=== PATIENT | male | born 1940 | race Two or more races ===

== ENCOUNTER 2017-10-17 15:24 | Emergency (ER) | payer OTHER ==
[~2017-10-17] VITALS: Ht 170.2 cm; Wt 86.2 kg
[~2017-10-17 15:24] MED LIST: AMLO10TA2 PO; ASPI81TA10 PO; BUPR75TA4 PO; DIP25C PO; ENAL5TAB92 PO; FURO40TA4 PO; METH10T PO; METO25TA5 PO; POTA10TA51 PO; POTA8TAB2 PO; PROAIR IN; TEMA15CA PO; TIOTCAP IN; WARF3TAB22 PO
[2017-10-17 15:46] VITALS: BP 138/69
[2017-10-17 16:45] LABS: Albumin 3.4 g/dL (3.4-5.0); Anion Gap 9 (5-15); Aspartate Aminotransferase 19 U/L (15-37); BUN/Creatinine Ratio 13.1; Blood Urea Nitrogen 17 mg/dL (7-18); Calcium 8.5 mg/dL (8.5-10.1); Carbon Dioxide 25 mmol/L (21-32); Chloride 105 mmol/L (98-107); GFR African American 69 mL/min; GFR Non-African American 57 mL/min; Glucose 105 mg/dL (74-106); Magnesium 2.2 mg/dL (1.6-2.6); Potassium 3.6 mmol/L (3.5-5.1); Sodium 139 mmol/L (136-145)
[2017-10-17 16:50] LABS: Alkaline Phosphatase 101 U/L (45-117); Bilirubin, Total 0.5 mg/dL (0.2-1.0); Total Protein 8.7 g/dL (6.4-8.2)
[2017-10-17 16:52] LABS: B-Type Natriuretic Peptide 605.69 pg/mL (0-100)
[2017-10-17 16:55] LABS: Temperature: 23.1 C (20.0-25.0)
[2017-10-17 17:51] LABS: Basophils # (auto) 0 uL; Basophils % (auto) 0.8 % (0.0-2.0); Eosinophils # (auto) 0.2 uL; Eosinophils % (auto) 4.1 % (0.0-7.0); Hematocrit 35.2 % (41.0-53.0); Hemoglobin 11.5 g/dL (13.5-17.5); Lymphocytes # (auto) 0.9 uL; Mean Corpuscular Hemoglobin 31.5 pg (28.0-32.0); Mean Corpuscular Hgb Conc. 32.7 g/dL (32.0-36.0); Mean Corpuscular Volume 96.3 fL (80.0-100.0); Mean Platelet Volume 10.7 fL (6.9-10.8); Monocytes # (auto) 0.5 uL; Monocytes % (auto) 9.2 % (0.0-12.0); Neutrophils # (auto) 3.4 uL; Neutrophils % (auto) 67.9 % (37.0-80.0); Nucleated Red Blood Cells % 0.1 %; Platelet Count (auto) 138 10^3/uL (140-450); Red Cell Distribution Width 15.3 % (11.8-14.3); White Blood Cell 4.9 10^3/uL (4.4-10.8)
== END 2017-10-17 19:54 | disposition left against medical advice (07) ==
LOC: ER 15:24
DX: M79.89 Other specified soft tissue disorders (principal); R06.02 Shortness of breath; Z53.21 Procedure and treatment not carried out due to patient leaving prior to being seen by health care provider
CPT/HCPCS: 36415; 71010; 80053; 83735; 83880; 84484; 85025; 93005

== ENCOUNTER 2017-11-16 19:50 | Inpatient (IN) | payer OTHER ==
[~2017-11-16] VITALS: Ht 170.2 cm; Wt 83.9 kg
[2017-11-16] MEDS ORDERED: ONDANSETRON HCL 4 MG/2 ML VIAL IV ONE (21:15)
[2017-11-16] MEDS ORDERED: HYDROmorphone HCL 2 MG/ML VL IV ONE (21:15)
[2017-11-16 21:21] LABS: Basophils # (auto) 0.1 uL; Basophils % (auto) 0.6 % (0.0-2.0); Eosinophils # (auto) 0 uL; Eosinophils % (auto) 0.5 % (0.0-7.0); Hematocrit 33.9 % (41.0-53.0); Hemoglobin 11.1 g/dL (13.5-17.5); Lymphocytes # (auto) 0.4 uL; Lymphocytes % (auto) 4.6 % (10.0-50.0); Mean Corpuscular Hemoglobin 31.2 pg (28.0-32.0); Mean Corpuscular Hgb Conc. 32.7 g/dL (32.0-36.0); Mean Corpuscular Volume 95.3 fL (80.0-100.0); Monocytes # (auto) 0.6 uL; Monocytes % (auto) 7.1 % (0.0-12.0); Neutrophils # (auto) 7.8 uL; Neutrophils % (auto) 87.2 % (37.0-80.0); Platelet Count (auto) 138 10^3/uL (140-450); Red Blood Cells 3.55 10^6/uL (4.5-5.90); Red Cell Distribution Width 15.2 % (11.8-14.3)
[2017-11-16 21:45] LABS: Alanine Aminotransferase 21 U/L (16-61); Albumin 3.1 g/dL (3.4-5.0); Amylase 43 U/L (25-115); Anion Gap 8 (5-15); Aspartate Aminotransferase 25 U/L (15-37); BUN/Creatinine Ratio 10.7; Blood Urea Nitrogen 16 mg/dL (7-18); Carbon Dioxide 23 mmol/L (21-32); Chloride 108 mmol/L (98-107); GFR African American 59 mL/min; GFR Non-African American 48 mL/min; Glucose 135 mg/dL (74-106); Lipase 109 U/L (73-393); Potassium 3.7 mmol/L (3.5-5.1); Sodium 139 mmol/L (136-145)
[2017-11-16] MEDS ORDERED: SODIUM CHLORIDE 0.9% 1,000 ML IV ONE (21:45)
[2017-11-16 21:50] LABS: Alkaline Phosphatase 138 U/L (45-117); Bilirubin, Total 0.4 mg/dL (0.2-1.0); Lactic Acid w/Reflex 2.4 mmol/L (0.4-2.0); Total Protein 8.9 g/dL (6.4-8.2)
[2017-11-16 22:02] LABS: Urine Bacteria FEW /hpf (None Seen); Urine Blood Negative /uL (Negative); Urine Mucus FEW (None Seen); Urine Specific Gravity 1.013 (1.001-1.035); Urine WBC 1 /hpf (0 - 3)
[2017-11-17] MEDS ORDERED: FUROSEMIDE 20 MG/2 ML VIAL IV ONE (01:15)
[2017-11-17] MEDS ORDERED: ONDANSETRON HCL 4 MG/2 ML VIAL IV PRN (07:45)
[2017-11-17] MEDS ORDERED: ACETAMINOPHEN 500 MG TAB PO PRN (07:45)
[2017-11-17] MEDS ORDERED: HYDROcodone-ACET 5/325MG TAB PO PRN (07:45)
[2017-11-17 08:06] LABS: Basophils # (auto) 0 uL; Basophils % (auto) 0.3 % (0.0-2.0); Eosinophils # (auto) 0 uL; Eosinophils % (auto) 0.1 % (0.0-7.0); Hematocrit 32.8 % (41.0-53.0); Hemoglobin 10.7 g/dL (13.5-17.5); Lymphocytes # (auto) 0.6 uL; Mean Corpuscular Hemoglobin 31.3 pg (28.0-32.0); Mean Corpuscular Hgb Conc. 32.7 g/dL (32.0-36.0); Mean Corpuscular Volume 95.6 fL (80.0-100.0); Monocytes # (auto) 0.5 uL; Monocytes % (auto) 5.8 % (0.0-12.0); Neutrophils # (auto) 7.8 uL; Neutrophils % (auto) 86.8 % (37.0-80.0); Platelet Count (auto) 114 10^3/uL (140-450); Red Blood Cells 3.43 10^6/uL (4.5-5.90); Red Cell Distribution Width 15.5 % (11.8-14.3)
[2017-11-17 08:35] LABS: Albumin 2.9 g/dL (3.4-5.0); Calcium 8.1 mg/dL (8.5-10.1); Potassium 3.9 mmol/L (3.5-5.1)
[2017-11-17 08:37] LABS: BUN/Creatinine Ratio 11.8
[2017-11-17 08:39] LABS: Bilirubin, Total 0.7 mg/dL (0.2-1.0)
[2017-11-17] MEDS: cefTRIAXone 1GM/10ml IVPUSH 10 ML IV SCH (09:23)
[2017-11-17] MEDS: FUROSEMIDE 40 MG/4 ML VIAL IV SCH (09:23)
[2017-11-17] MEDS: ENALAPRIL MALEATE 10 MG TAB PO SCH (09:24)
[2017-11-17 11:02] LABS: INR 2.63 (0.9-1.15); Partial Thromboplastin Time 45.2 sec (22.64-33.71)
[2017-11-17 14:42] VITALS: BP 152/80
[2017-11-17 15:15] VITALS: BP 152/80
[2017-11-17 15:54] LABS: Cholesterol 99 mg/dL (< 200); HDL Cholesterol 45 mg/dL (40-59); LDL Cholesterol 55 mg/dL (< 100); Triglycerides 71 mg/dL (< 150)
[2017-11-17] MEDS ORDERED: WARFARIN SODIUM 2 MG TAB PO ONE (17:00)
[2017-11-17 20:00] VITALS: BP 132/70
[2017-11-17 22:19] VITALS: BP 132/70
[2017-11-18 06:00] VITALS: BP 133/81
[2017-11-18 07:12] LABS: Basophils # (auto) 0 uL; Basophils % (auto) 0.3 % (0.0-2.0); Eosinophils # (auto) 0.1 uL; Eosinophils % (auto) 1.7 % (0.0-7.0); Hematocrit 32.9 % (41.0-53.0); Hemoglobin 10.9 g/dL (13.5-17.5); Lymphocytes # (auto) 0.8 uL; Lymphocytes % (auto) 12.3 % (10.0-50.0); Mean Corpuscular Hemoglobin 31.5 pg (28.0-32.0); Mean Corpuscular Volume 95.5 fL (80.0-100.0); Monocytes # (auto) 0.5 uL; Monocytes % (auto) 7.4 % (0.0-12.0); Neutrophils # (auto) 4.9 uL; Neutrophils % (auto) 78.3 % (37.0-80.0); Platelet Count (auto) 112 10^3/uL (140-450); Red Blood Cells 3.45 10^6/uL (4.5-5.90); White Blood Cell 6.2 10^3/uL (4.4-10.8)
[2017-11-18 07:26] LABS: INR 2.14 (0.9-1.15); Partial Thromboplastin Time 44.1 sec (22.64-33.71); Prothrombin Time 23.5 sec (9.37-12.3)
[2017-11-18 09:00] VITALS: BP 118/60
[2017-11-18] MEDS: cefTRIAXone 1GM/10ml IVPUSH 10 ML IV SCH (10:02)
[2017-11-18] MEDS: FUROSEMIDE 40 MG/4 ML VIAL IV SCH (10:02)
[2017-11-18] MEDS: ENALAPRIL MALEATE 10 MG TAB PO SCH (10:03)
[2017-11-18] MEDS ORDERED: LEVO500T21 PO (12:41)
[2017-11-18 13:00] VITALS: BP 130/66
[2017-11-18 16:37] VITALS: BP 127/74
[2017-11-18] MEDS ORDERED: WARFARIN SODIUM 2 MG TAB PO ONE (17:00)
[2017-11-18 20:00] VITALS: BP 135/79
[2017-11-18 22:05] VITALS: BP 135/79
[2017-11-19] VITALS (7 sets, daily range): BP systolic 103–140; BP diastolic 55–92
[2017-11-19 07:30] LABS: Basophils # (auto) 0.1 uL; Basophils % (auto) 1.1 % (0.0-2.0); Eosinophils # (auto) 0.2 uL; Eosinophils % (auto) 3.4 % (0.0-7.0); Hematocrit 32.6 % (41.0-53.0); Hemoglobin 10.8 g/dL (13.5-17.5); Lymphocytes % (auto) 20.2 % (10.0-50.0); Mean Corpuscular Hemoglobin 30.8 pg (28.0-32.0); Mean Corpuscular Hgb Conc. 33.1 g/dL (32.0-36.0); Mean Corpuscular Volume 92.9 fL (80.0-100.0); Monocytes # (auto) 0.5 uL; Monocytes % (auto) 8.9 % (0.0-12.0); Neutrophils # (auto) 3.4 uL; Neutrophils % (auto) 66.4 % (37.0-80.0); Nucleated Red Blood Cells % 0.1 %; Platelet Count (auto) 102 10^3/uL (140-450); Red Blood Cells 3.51 10^6/uL (4.5-5.90); Red Cell Distribution Width 14.7 % (11.8-14.3); White Blood Cell 5.1 10^3/uL (4.4-10.8)
[2017-11-19 10:01] LABS: INR 1.53 (0.9-1.15); Partial Thromboplastin Time 28.8 sec (22.64-33.71); Prothrombin Time 16.7 sec (9.37-12.3)
[2017-11-19 10:09] LABS: BUN/Creatinine Ratio 14.2; Calcium 8.5 mg/dL (8.5-10.1)
[2017-11-19 10:12] LABS: Bilirubin, Total 0.6 mg/dL (0.2-1.0); Total Protein 8.4 g/dL (6.4-8.2)
[2017-11-19] MEDS: cefTRIAXone 1GM/10ml IVPUSH 10 ML IV SCH (10:29)
[2017-11-19] MEDS: FUROSEMIDE 40 MG/4 ML VIAL IV SCH (10:30)
[2017-11-19] MEDS: ENALAPRIL MALEATE 10 MG TAB PO SCH (10:31)
[2017-11-19 10:41] LABS: Hepatitis B Surface Antibody Negative
[2017-11-19] MEDS ORDERED: ADENOSINE 71 MG in GIVE UN-DILUTED 0 ML IV ONE (10:45)
[2017-11-19 10:52] LABS: Hepatitis B Surface Antigen Negative (Negative)
[2017-11-19] MEDS ORDERED: IPRATROPIUM BROM 0.5 MG/2.5ML INH SOL ONE (11:14)
[2017-11-19] MEDS ORDERED: ALBUTEROL SULF 2.5 MG/0.5ML(0.5%) NEB SOLN ONE (11:14)
[2017-11-19 11:20] LABS: Hepatitis A Total Antibody Positive
[2017-11-19 11:58] LABS: Hepatitis B Core Total AB Positive; Hepatitis C Antibody Positive (Negative)
[2017-11-20 05:00] VITALS: BP 124/87
[2017-11-20 06:47] LABS: INR 1.5 (0.9-1.15); Partial Thromboplastin Time 36.5 sec (22.64-33.71); Prothrombin Time 16.4 sec (9.37-12.3)
[2017-11-20 08:00] VITALS: BP 109/44
[2017-11-20] MEDS: FUROSEMIDE 40 MG/4 ML VIAL IV SCH (09:15)
[2017-11-20] MEDS: ENALAPRIL MALEATE 10 MG TAB PO SCH (09:15)
[2017-11-20] MEDS: cefTRIAXone 1GM/10ml IVPUSH 10 ML IV SCH (09:16)
[2017-11-20 10:09] VITALS: BP 109/44
== END 2017-11-20 12:00 | disposition home or self-care (01) | DRG 280 ==
LOC: EDBD 19:50 → ER 19:50 → TELE 19:51 → TELE-EAST 11-17 14:44
PROVIDERS: ADMIT Nurse Practitioner Family; ATTEND Internal Medicine
DX: I21.09 ST elevation (STEMI) myocardial infarction involving other coronary artery of anterior wall (principal); I50.43 Acute on chronic combined systolic (congestive) and diastolic (congestive) heart failure; I48.91 Unspecified atrial fibrillation; J44.9 Chronic obstructive pulmonary disease, unspecified; F17.210 Nicotine dependence, cigarettes, uncomplicated; G47.00 Insomnia, unspecified; I11.0 Hypertensive heart disease with heart failure; I25.10 Atherosclerotic heart disease of native coronary artery without angina pectoris; B19.20 Unspecified viral hepatitis C without hepatic coma; K29.00 Acute gastritis without bleeding; R32 Unspecified urinary incontinence; Z79.899 Other long term (current) drug therapy; I25.2 Old myocardial infarction; Z82.49 Family history of ischemic heart disease and other diseases of the circulatory system; Z79.82 Long term (current) use of aspirin; Z79.01 Long term (current) use of anticoagulants
CPT/HCPCS: 36415; 70450; 71045; 74176; 78452; 80053; 80061; 81001; 82140; 82150; 83605; 83690; 83735; 83880; 84484; 85025; 85610; 85730; 86704; 86706; 86708; 86803; 87340; 93005; 93017; 93306; 96374; 96375; J0153; J2405

== ENCOUNTER 2020-02-18 20:20 | Emergency (ER) | payer OTHER ==
[~2020-02-18] VITALS: Ht 170.2 cm; Wt 74.8 kg
[~2020-02-18 20:20] MED LIST changes: +AMLO10TA13 PO; -AMLO10TA2 PO; +ENAL5TAB PO; -ENAL5TAB92 PO; +LEVO500T21 PO
[2020-02-18 21:34] LABS: Basophils # (auto) 0 10 ^3/uL (0-0.2); Basophils % (auto) 0.6 % (0.0-2.0); Eosinophils # (auto) 0.3 10 ^3/uL (0-0.8); Eosinophils % (auto) 4.9 % (0.0-7.0); Hematocrit 34.4 % (41.0-53.0); Hemoglobin 11.6 g/dL (13.5-17.5); Lymphocytes # (auto) 0.7 10 ^3/uL (0.4-5.4); Lymphocytes % (auto) 11.5 % (10.0-50.0); Mean Corpuscular Hemoglobin 31.3 pg (28.0-32.0); Mean Corpuscular Hgb Conc. 33.6 g/dL (32.0-36.0); Mean Corpuscular Volume 93.3 fL (80.0-100.0); Monocytes # (auto) 0.5 10 ^3/uL (0-1.3); Monocytes % (auto) 8.9 % (0.0-12.0); Neutrophils # (auto) 4.4 10 ^3/uL (1.6-8.6); Neutrophils % (auto) 74.1 % (37.0-80.0); Nucleated Red Blood Cells % 0.1 %; Platelet Count (auto) 174 10^3/uL (140-450); Red Blood Cells 3.69 10^6/uL (4.5-5.90); Red Cell Distribution Width 15.3 % (11.8-14.3)
[2020-02-18 21:50] LABS: Albumin 2.9 g/dL (3.4-5.0); BUN/Creatinine Ratio 13.4; Calcium 8.4 mg/dL (8.5-10.1); INR 1.32 (0.9-1.15); Partial Thromboplastin Time 33.9 sec (23.64-32.05); Potassium 3.6 mmol/L (3.5-5.1)
[2020-02-18 21:55] LABS: Bilirubin, Total 0.6 mg/dL (0.2-1.0); Total Protein 8.7 g/dL (6.4-8.2)
[2020-02-18 23:07] LABS: Urine Bacteria NONE SEEN /hpf (None Seen); Urine Blood Negative /uL (Negative); Urine Sperm PRESENT /hpf (None Seen); Urine WBC <1 /hpf (0 - 3)
[2020-02-18 23:22] LABS: Amphetamine Screen, Urine POSITIVE (NEGATIVE); Barbiturate Scree,Urine NEGATIVE (NEGATIVE); Benzodiazephine Screen, Urine NEGATIVE (NEGATIVE); Cannabinoid Screen, Urine NEGATIVE (NEGATIVE); Cocaine Screen, Urine NEGATIVE (NEGATIVE); Opiate Scree,Urine POSITIVE (NEGATIVE); Phencyclidine Screen, Urine NEGATIVE (NEGATIVE)
[2020-02-19 04:10] VITALS: BP 133/75
== END 2020-02-19 04:57 | disposition home or self-care (01) ==
LOC: ER 20:22
DX: R53.1 Weakness (principal); R06.02 Shortness of breath; I48.91 Unspecified atrial fibrillation; D64.9 Anemia, unspecified; F19.90 Other psychoactive substance use, unspecified, uncomplicated; I25.10 Atherosclerotic heart disease of native coronary artery without angina pectoris; J44.9 Chronic obstructive pulmonary disease, unspecified; I25.2 Old myocardial infarction; F17.210 Nicotine dependence, cigarettes, uncomplicated; Z79.2 Long term (current) use of antibiotics; Z79.82 Long term (current) use of aspirin; Z79.899 Other long term (current) drug therapy; Z79.01 Long term (current) use of anticoagulants
CPT/HCPCS: 36415; 80053; 80307; 81001; 83880; 85025; 85610; 85730; 93005; 93970